=== PATIENT | female | born 1945 | race Caucasian/White ===

== ENCOUNTER → 2017-12-23 07:09 | Outpatient (CLI) | payer SELFPAY ==
--- NOTE | 2017-12-23 07:11 | CT_ITS ---
STUDY: CT ABDOMEN AND PELVIS WITH CONTRAST REASON FOR EXAM: Female, 72 years old. Gross hematuria one month ago RADIATION DOSAGE (If Supplied By Facility): CTDIvol = ( 9.77 ) mGy, DLP = ( 865.80 ) mGycm TECHNIQUE: Transaxial images were obtained from the dome of the diaphragm to the symphysis pubis without oral contrast. 100 ml of Isovue 300 contrast was administered. Sagittal and coronal images were reconstructed. Individualized dose optimization techniques were used for this CT. COMPARISON: None. FINDINGS: The visualized lung bases are unremarkable. The visualized portions of the heart are within normal limits. Normal liver. Normal gallbladder and extrahepatic biliary system. Normal spleen. Normal pancreas. Normal bilateral adrenal glands. Normal right kidney. There is a subcentimeter probable cyst of the left kidney. Normal visualized stomach. Normal small intestine. There is colonic diverticulosis with no evidence of associated diverticulitis. There is non-visualization of the appendix. There are calcified plaques of the abdominal aorta. Normal inferior vena cava. Normal retroperitoneum. Normal urinary bladder. There is absence of the uterus consistent with a prior hysterectomy. 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 There is an ill-defined soft tissue density of the left inguinal area measuring 2.7 x 1.9 cm which is of unknown etiology or significance. Normal abdominal wall. There is a Schmorl's node of the superior endplate of T12. There are degenerative changes of the L5-S1 region. CT/CT Abd/Pelvis W/WO Contrast IMPRESSION: 1. Subcentimeter probable cyst of the left kidney. Ultrasound correlation is recommended. 2. Colonic diverticulosis with no evidence of associated diverticulitis. 3. Status post hysterectomy. 4. 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 5. There is an ill-defined soft tissue density of the left inguinal area measuring 2.7 x 1.9 cm which is of unknown etiology or significance. Neoplastic process cannot be excluded. Further evaluation of this is recommended. MRI may be helpful. 6. Schmorl's node of the superior endplate of T12. Degenerative changes of the L5-S1 level. Electronically Signed: Antolin Naidu MD at 17:21 EDT , Service support ,
[2017-12-23 07:31] LABS: CREATININE FINGERSTICK 0.6 mg/dL (0.55-1.02); EGFR FINGERSTICK > 60.0000 mL/min (>60)
== END ==
PROVIDERS: Family Provider Internal Medicine; PCP Internal Medicine; Visit Provider Nurse Practitioner Adult Health
DX: R31.0 Gross hematuria (principal)
CPT/HCPCS: 74178; Q9967